=== PATIENT | female | born 1945 | race Caucasian/White ===

== ENCOUNTER 2024-10-17 14:08 | Outpatient (CLI) | payer OTHER, MEDICARE | END 2024-10-17 14:09 | disposition home or self-care (01) | LOC: MADRAD 14:08 | PROVIDERS: ATTEND Registered Nurse | DX: M53.3 Sacrococcygeal disorders, not elsewhere classified (principal); W19.XXXA Unspecified fall, initial encounter | CPT/HCPCS: 72220 ==

== ENCOUNTER 2025-06-28 19:24 | Emergency (ER) | payer MEDICARE ==
[2025-06-28] MEDS ORDERED: Aspirin Chewable 81 MG TAB ONE (21:08)
[2025-06-28 21:12] LABS: #Basophils 0.0 thou/uL (0.0-0.2); #Eosinophils 0.1 thou/uL (0.0-0.7); #Lymphocytes 1.1 thou/uL (1.20-3.40); #Monocytes 0.2 thou/uL (0.11-0.59); #Neutrophils 4.9 thou/uL (1.40-6.50); %Basophils 0.6 % (0.0-1.0); %Eosinophils 2.0 % (0.0-10.0); %Lymphocytes 16.8 % (21.0-51.0); %Monocytes 3.7 % (0.0-10.0); %Neutrophils 76.9 % (42.0-75.0); Hematocrit 34.9 % (36.0-47.0); Hemoglobin 11.4 g/dL (12.0-16.0); Mean Corpuscular Hemoglobin 30.4 pg (27.0-31.0); Mean Corpuscular Volume 93.2 fl (78.0-98.0); Platelet Count 322 10x3/uL (130-400); Red Blood Cell (RBC) Count 3.74 mill/uL (4.20-5.40); White Blood Cell (WBC) Count 6.4 10x3/uL (4.8-10.8)
[2025-06-28 21:30] LABS: ALT (SGPT) Less than 7 U/L (Less than 34); AST (SGOT) 24 U/L (11-34); Albumin 3.4 g/dL (3.1-4.5); Alkaline Phosphatase 60 U/L (40-110); Anion Gap 15 mmol/L (10-20); BUN (Urea Nitrogen) 15 mg/dL (9.8-20.1); Bilirubin, Total 0.7 mg/dL (0.3-1.2); Calc. Creatinine Clearance 0 mL/min (70-130); Calcium 9.2 mg/dL (7.8-10.44); Carbon Dioxide 25 mmol/L (23-31); Chloride 101 mmol/L (98-107); Globulin 4.0 g/dL (2.4-3.5); Glucose 91 mg/dL (83-110); Potassium 4.1 mmol/L (3.5-5.1); Sodium 137 mmol/L (136-145); Troponin I Less than 0.010 ng/mL (< 0.028)
[2025-06-28] MEDS ORDERED: CEFAZOLIN 2 GM VIAL ONE (22:50)
== END 2025-06-29 00:02 | disposition home or self-care (01) ==
LOC: MADERS 19:24
DX: L03.113 Cellulitis of right upper limb (principal); M19.042 Primary osteoarthritis, left hand; J90 Pleural effusion, not elsewhere classified; R79.89 Other specified abnormal findings of blood chemistry; E03.9 Hypothyroidism, unspecified; I10 Essential (primary) hypertension; Z79.890 Hormone replacement therapy; Z79.899 Other long term (current) drug therapy
CPT/HCPCS: 71045; 80053; 83880; 84484; 85025; 86140; 93005; 94760; J2270; 96374; 96375